=== PATIENT | male | born 1980 ===

== ENCOUNTER 2017-10-11 01:08 | Inpatient (IN) | payer MEDICAID ==
--- NOTE | 2017-10-11 01:14 | C.PDOC ---
History Of Present Illness Patient presents to the ER as a prescreen for ETOH and heroin detox, last use approximately 1 hour ago. Denies physical complaints at this time. Time Seen by Provider: 10/11/17 01:13 History Per: Patient History/Exam Limitations: no limitations Onset/Duration Of Symptoms: Days Current Symptoms Are (Timing): Still Present Suicide/Self Injury Attempted (Context): None Modifying Factor(s): Alcohol, Narcotics Severity: Mild Pain Scale Rating Of: 4 Associated Symptoms: denies: Depression, Suicidal Thoughts, Suicidal Plan Involuntary Hold By: None Recent travel outside of the [place]: No Past Medical History Reviewed: Historical Data, Nursing Documentation, Vital Signs Vital Signs: Last Vital Signs Temp 97.5 F L 10/11/17 05:55 Pulse 80 10/11/17 05:55 Resp 14 10/11/17 05:55 BP 110/70 10/11/17 05:55 Pulse Ox 98 10/11/17 05:55 - Medical History PMH: No Chronic Diseases Surgical History: No Surg Hx Family History: States: Unknown Family Hx Review Of Systems Constitutional: Negative for: Fever, Chills Gastrointestinal: Negative for: Nausea, Vomiting, Diarrhea Physical Exam - Physical Exam Appears: Non-toxic, No Acute Distress Skin: Warm, Dry Head: Normacephalic Oral Mucosa: Moist Chest: Symmetrical Cardiovascular: Rhythm Regular Respiratory: No Rales, No Rhonchi, No Wheezing Gastrointestinal/Abdominal: Soft, No Tenderness Neurological/Psych: Oriented x3 ED Course And Treatment - Laboratory Results Result Diagrams: 10/11/17 02:20 10/11/17 02:20 O2 Sat by Pulse Oximetry: 98 Pulse Ox Interpretation: Normal Disposition Discussed With : Joelle Earl Comment: accepted the pt on her service and took over the care at 6:25 AM Counseled Patient/Family Regarding: Studies Performed, Diagnosis - Disposition Disposition: HOSPITALIZED Disposition Time: 01:13 Condition: FAIR - Clinical Impression Clinical Impression: Alcohol abuse, Drug abuse, Drug dependence - Scribe Statement The provider has reviewed the documentation as recorded by the Scribe Mihai Mcdermott All medical record entries made by the Scribe were at my direction and personally dictated by me. I have reviewed the chart and agree that the record accurately reflects my personal performance of the history, physical exam, medical decision making, and the department course for this patient. I have also personally directed, reviewed, and agree with the discharge instructions and disposition. Decision To Admit - Pt Status Changed To: Hospital Disposition Of: Inpatient - Admit Certification Admit to Inpatient:: After my assessment, the patient will require hospitalization for at least two midnights. This is because of the severity of symptoms shown, intensity of services needed, and/or the medical risk in this patient being treated as an outpatient. - InPatient: Physician Admission Certification: I certify that this patient requires 2 or more midnights of care for the following reason:: After my assessment, the patient will require hospitalization for at least two midnights. This is because of the severity of symptoms shown, intensity of services needed, and/or the medical risk in this patient being treated as an outpatient. - . Bed Request Type: Detox Admitting Physician: Joelle Earl Patient Diagnosis: Drug abuse, Drug dependence, Alcohol abuse
[2017-10-11 02:23] LABS: BASO # 0.1 K/uL (0.0-0.2); BASO % 0.8 % (0.0-2.0); EOS # 0.1 K/uL (0.0-0.7); EOS % 1.2 % (0.0-4.0); HEMATOCRIT 44.5 % (35.0-51.0); LYMPH # 1.7 K/uL (1.0-4.3); LYMPH % 25.8 % (20.0-40.0); MEAN CELL VOLUME 81.5 fL (80.0-94.0); MEAN CORPUSCULAR HEMOGLOBIN 27.2 pg (27.0-31.0); MEAN CORPUSCULAR HGB CONC 33.4 g/dL (33.0-37.0); MEAN PLATELET VOLUME 10.3 fL (7.2-11.7); MONO # 0.6 K/uL (0.0-0.8); MONO % 9.1 % (0.0-10.0); RED CELL DISTRIBUTION WIDTH 14.7 % (11.5-14.5); WHITE BLOOD COUNT 6.6 K/uL (4.8-10.8)
[2017-10-11 02:50] LABS: ALCOHOL SERUM < 10 mg/dl (0-10); ALKALINE PHOSPHATASE 79 U/L (38-126); ALT/SGPT 213 U/L (21-72); AST/SGOT 95 U/L (17-59); BILIRUBIN,TOTAL 0.9 mg/dL (0.2-1.3); BLOOD UREA NITROGEN 15 mg/dL (9-20); CALCIUM 8.7 mg/dl (8.6-10.4); CARBON DIOXIDE 27 mmol/L (22-30); CHLORIDE 101 mmol/L (98-107); GFR AFRICAN-AMERICAN > 60; GLUCOSE,RANDOM 137 mg/dL (75-110); POTASSIUM 3.4 mmol/L (3.6-5.2); SODIUM 137 mmol/L (132-148); TOTAL PROTEIN 8.7 g/dL (6.3-8.3)
[2017-10-11 03:01] LABS: RBC URINE 1 /hpf (0-3); URINE BACTERIA RARE (<OCC); URINE BILIRUBIN NEGATIVE (NEGATIVE); URINE BLOOD NEGATIVE (NEGATIVE); URINE COLOR Amber (YELLOW); URINE GLUCOSE (UA) NORMAL (Normal); URINE KETONE NEGATIVE (NEGATIVE); URINE LEUKOCYTE ESTERASE NEG Leu/uL (Negative); URINE PROTEIN NEGATIVE (NEGATIVE); WBC URINE 2 /hpf (0-5)
[2017-10-11 07:32] LABS: ALB/GLOB RATIO 0.9 (1.0-2.1)
--- NOTE | 2017-10-11 08:13 | PCM.BM ---
Addendum entered and electronically signed by Ariana Fuentes 10/13/17 08:52: Family Contact Family involvement: Famliy/SO not involved Family contact: Patient declines to allow family contact at present - Goals for Treatment Patient goals for treatment: COMPLETE DETOX AND APPLY FOR [facility]. Discharge/Continuing Care - Education Needs Education Needs: Patient Medication, Patient Diagnosis/Disease Process, Patient Coping Skills, Patient Anger Management skills, Patient Placement options, Patient Community resources - Discharge Discharge Criteria: No longer exhibiting s/s of withdrawal, Reduction of target symptoms Discharge to:: Substance Abuse Rehab - Treatment Team Participation Patient/Family/SO Statement: Subutex detox Prn meds for opioid and benzo withdrawal symptoms. Will start methadone /Subutex taper once pt is withdrawing from opioid. Monitor vitals. As needed meds and vitamins Attend groups and activities [place] for abstinence and CBT for relapse prevention Support and psychoeducation Consider and encourage MAT 10/13/17 08:52 "i WANNA GO TO [facility] IF I CAN..." Discussed with Family/SO: No Was Patient/Family/SO present at Treatment Team Meeting: Yes Original Note: Treatment Plan Problems - Problems identified on initial assessmt Opiate dependence Date Initiated: 10/11/17 Time Initiated: 08:15 Assessment reference: NA Status: Active Alcohol withdrawal Date Initiated: 10/11/17 Time Initiated: 08:15 Assessment reference: NA Status: Active Treatment assets and liabiliti Patient Assests: cooperative, ADL independent, negotiates basic needs Patient Liabilities: live alone, financial problems, substance abuse - Milieu Protocol Maintain good personal hygiene: daily Encourage regular showers, daily Remind patient to perform daily oral care, daily Assist patient to perform ADL's Maintain personal safety: every shift Educate patient to report safety concerns to staff, every shift Monitor environment for contraband/sharps Medication safety: Monitor for expected outcome, potential side effects: every shift, Assess barriers to learning: every shift, Assess readiness for medication education: every shift
--- NOTE | 2017-10-11 16:42 | PCM.PSYCH ---
Initial Psychiatric Evaluation - Initial Psychiatric Evaluation Type of Admission: Voluntary Legal Status: Capacity History of Present Illness and Precipitating Events: This is a 37 y/o AA homeless male admitted for drug opioid detox. Pt. reports that he has been using Heroin, Alcohol, and Marijuana since age 13. Pt. is inconsistent in providing his history. He denied depressive symptoms and depression in the past. Pt. reports that he wants to do drug rehab upon D/C from the detox program. Pt. reports that he started to use drugs when he was 13 years old. Pt. reports that his friends introduced him to the drugs. Pt. reports that he was arrested due to drug possession. Pt reported that he drinks 1/2 pint vodka on daily basis. He reported etoh withdrawal symptoms when he is not drinking ranging from flushing, hot and cold sweat. however, he denied any sz 2/2 to etoh withdrawal, no DT, no blackout, no AVH. Currently he denied alcohol withdrawal symptoms. He denied opioid withdrawal symptoms. He reported that he is smoking PCP once a month, and last use was on Friday. He reported that he smokes 1 -2 blunts on a daily basis. He denied using cocaine. He reported that he rarely use benzo. Pt. denies any S/H ideation. Pt. also denies any A/V/t hallucinations. Pt. tested + for PCP and benzos'. Pt. failed to disclose these drugs when he was pre-screen. Social Hx; He is and has 4 children who are living with their mothers. He is unemployed. Pt. reports that he is homeless at the moment because his family stopped helping him out. Pt. reports that he wants to get his life back because the drugs is creating problems with his family. Pt. 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 Current Medications: Active Medications Generic Name Dose Route Start Last Admin Trade Name Freq PRN Reason Stop Dose Admin Benztropine Mesylate 2 mg 10/11/17 08:31 Cogentin PO Q6 PRN Extra Pyramidal Symptoms Clonidine HCl 0.1 mg 10/11/17 08:33 Catapres PO Q8H PRN autonomic instability Dicyclomine HCl 10 mg 10/11/17 08:31 Bentyl PO Q6 PRN Muscle spasm Haloperidol 5 mg 10/11/17 08:31 Haldol PO Q8 PRN Moderate Agitation Hydroxyzine HCl 25 mg 10/11/17 08:31 Atarax PO Q6 PRN Anxiety Loperamide HCl 2 mg 10/11/17 08:31 Imodium PO Q8 PRN Diarrhea Lorazepam 2 mg 10/11/17 08:31 Ativan PO Q8H PRN Severe Agitation Ondansetron HCl 4 mg 10/11/17 08:31 Zofran Tab PO Q8H PRN Nausea/Vomiting Pneumococcal Polyvalent Vaccine 0.5 ml 10/15/17 10:00 Pneumovax 23 Vaccine IM 10/15/17 10:01 .ONCE ONE Past Psychiatric History - Past Psychiatric History Prior Professional Help: had detox and rehab in past Prior Psychiatric Treatment: Rehab and detox At [facility]: [facility] History of Abuse: denied History of ETOH/Drug Use: please see HPI History of Family Illness: denied Pertinent Medical Hx (Current Medical&Sleep Prob, Allergies): Allergies Allergy/AdvReac Type Severity Reaction Status Date / Time No Known Allergies Allergy Verified 10/11/17 01:23 Naltrexone [Revia] 50 mg PO DAILY 10/11/17 denied Review of Systems - Review of Systems Systems not reviewed;Unavailable: Acuity of Condition All systems: reviewed and no additional remarkable complaints except (please see HPI) - EENT Eyes: UNREMARKABLE Ears: UNREMARKABLE Nose/Mouth/Throat: UNREMARKABLE - Cardiovascular Cardiovascular: UNREMARKABLE - Respiratory Respiratory: UNREMARKABLE - Gastrointestinal Gastrointestinal: UNREMARKABLE - Genitourinary Genitourinary: UNREMARKABLE - Reproductive: Male Reproductive:Male: UNREMARKABLE - Musculoskeletal Musculoskeletal: UNREMARKABLE - Integumentary Integumentary: UNREMARKABLE - Neurological Neurological: UNREMARKABLE - Psychiatric Additional comments: please see HPI Mental Status Examination - Personal Presentation Personal Presentation: Looks stated age, Dressed appropriate to season - Affect Affect: Broad - Motor Activity Motor Activity: Calm - Reliability in Providing Information Reliability in Providing Information: Fair - Speech Speech: Organized - Mood Mood: Neutral - Formal Thought Process Formal Thought Process: No Impairment - Hallucinations/Delusions Delusions: Other (denied) - Obsessions/Compulsions Obsessions: No Compulsions: No - Cognitive Functions Orientation: Person, Place, Situation, Time Sensorium: Drowsy Attention/Concentration: Attentive Abstract Thinking: [place] Estimate of Intelligence: Average Judgement: Intact, as evidence by: Good judgement, Intact, as evidence by: Insight regarding need for hospitalization Memory: Recent intact, as evidence by: Ability to recall events of the day - Risk Risk: Other (denied) - Strength & Assets Inventory Strength & Assets Inventory: Employment history, Cooperative - Limitations Limitations: Other (homeless, chronic illicit drug use) DSM 5 DX - DSM 5 DSM 5 Diagnosis: Alcohol denpendence Opioid abuse and intoxicated Cannabis abuse - Recommended/Plan of Treatment Treatment Recommendations and Plan of Treatment: Prn meds for opioid and alcohol withdrawal symptoms. Will start methadone /Subutex taper once pt is withdrawing from opioid. Monitor vitals. As needed meds and vitamins Attend groups and activities [place] for abstinence and CBT for relapse prevention Support and psychoeducation Consider and encourage MAT Projected ELOS: 4-5 DAYS Discharge Plan and Discharge Criteria: Refer to after care - Smoking Cessation Smoking Cessation Initiated: Yes
[2017-10-12] MEDS ORDERED: Buprenorphine Hydrochloride 2 mg SL ONE ×2 (10:54→12:10)
--- NOTE | 2017-10-12 16:16 | PCM.PYCHPN ---
Psychiatric Progress Note - Psychiatric Progress Note Patient seen today, length of contact: 18 minutes Patient Chief Complaint: I have opioid withdrawal symptoms Problems Identified/Issues Discussed: The pt is seen, chart reviewed, case discussed with staff. The pt reproted that he has had opioid withdrawal symptoms. He has hot and cold flashes, body aches, tired, yawning, nasal congestion, etc. He denied perceptual disturbances, including tactile hallucinations. He denied depressive symptoms. The pt is compliant with medications and reports no side-effects. He needs more time to stabilize. After care discussed, support and psychoeducation given. DSM 5 Symptoms Update: Opioid dependence, withdrawal, intoxication, Cannabis use d/o, Amphetamine use d /o Medication Change: Yes (Subutex taper) Medical Record Reviewed: Yes Mental Status Examination - Cognitive Function Orientation: Person, Place, Situation, Time Memory: Intact Attention: WNL Concentration: WNL Association: WNL Fund of Knowledge: [facility] Decription of patient's judgement and insights: Good/good Addtional comments: +ve yawning and goose bump - Mood Mood: Neutral - Affect Affect: Broad - Speech Speech: Appropriate - Formal Thought Process Formal Thought Process: No Impairment Psychotic Thoughts and Behaviors: denied - Suicidal Ideation Suicidal Ideation: No - Homicidal Ideation Homicidal Ideation: No Goal/Treatment Plan - Goal/Treatment Plan Need for Continued Stay: Discharge may exacerbated symptoms Progress Toward Problem(s) and Goals/Treatment Plan: Subutex detox Prn meds for opioid and benzo withdrawal symptoms. Will start methadone /Subutex taper once pt is withdrawing from opioid. Monitor vitals. As needed meds and vitamins Attend groups and activities [place] for abstinence and CBT for relapse prevention Support and psychoeducation Consider and encourage MAT Estimated Date of D/C: 10/15/17 - Smoking Cessation Smoking Cessation Initiated: No
--- NOTE | 2017-10-13 08:49 | RAD ---
Chest x-ray two views History: Rehab purposes. Comparison: None available. Findings: No focal infiltrate or effusion. Heart size within normal limits. Bibasilar breast and nipple shadows. Small nodular density at the medial right lung base likely represents prominent vessel on end. Degenerative changes in the spine. Impression: No focal infiltrate or effusion.
[2017-10-13] MEDS: Buprenorphine Hydrochloride 2 mg SL SCH (09:27)
--- NOTE | 2017-10-13 14:24 | PCM.PYCHPN ---
Psychiatric Progress Note - Psychiatric Progress Note Patient seen today, length of contact: 17 min Patient Chief Complaint: "I am feeling tired" Medical Problems: The pt is seen, chart reviewed, case discussed with staff. The pt is compliant with medications and reports no side-effects. Symptoms are improving but needs more time to stabilize. After care discussed, support and psychoeducation given. Medication Change: Yes (Subutex taper) Medical Record Reviewed: Yes Mental Status Examination - Cognitive Function Orientation: Person, Place, Situation, Time Memory: Intact Attention: WNL Concentration: WNL Association: WNL Fund of Knowledge: WNL - Mood Mood: Neutral - Affect Affect: Broad - Speech Speech: Appropriate - Formal Thought Process Formal Thought Process: No Impairment - Suicidal Ideation Suicidal Ideation: No - Homicidal Ideation Homicidal Ideation: No Goal/Treatment Plan - Goal/Treatment Plan Need for Continued Stay: Discharge may exacerbated symptoms, Severe functional impairment Progress Toward Problem(s) and Goals/Treatment Plan: Subutex detox As needed medications Gabapentin for augmentation Attend groups and activities Supportive therapy and psychoeducation [place] for abstinence CBT for relapse prevention Encourage MAT Refer to rehab or IOP Attend self-help groups as well Estimated Date of D/C: 10/15/17 - Smoking Cessation Smoking Cessation Initiated: No
[2017-10-14] MEDS: Buprenorphine Hydrochloride 2 mg SL SCH (10:03)
--- NOTE | 2017-10-14 14:16 | PCM.PYCHPN ---
Psychiatric Progress Note - Psychiatric Progress Note Patient seen today, length of contact: 18 min Patient Chief Complaint: "I am feeling alright" Problems Identified/Issues Discussed: The pt is seen, chart reviewed, case discussed with staff. He refused his subutex today saying he is feeling Ok. Risks discussed. Pt is in good spirits and stated he plans to go to [facility] after discharge. The pt is compliant with medications and reports no side-effects. Symptoms are improving but needs more time to stabilize. After care discussed, support and psychoeducation given. Medication Change: Yes (Subutex taper) Medical Record Reviewed: Yes Mental Status Examination - Cognitive Function Orientation: Person, Place, Situation, Time Memory: Intact Attention: WNL Concentration: WNL Association: WNL Fund of Knowledge: WNL - Mood Mood: Neutral - Affect Affect: Broad - Speech Speech: Appropriate - Formal Thought Process Formal Thought Process: No Impairment - Suicidal Ideation Suicidal Ideation: No - Homicidal Ideation Homicidal Ideation: No Goal/Treatment Plan - Goal/Treatment Plan Need for Continued Stay: Discharge may exacerbated symptoms Progress Toward Problem(s) and Goals/Treatment Plan: Subutex detox As needed medications Gabapentin for augmentation Attend groups and activities Supportive therapy and psychoeducation [place] for abstinence CBT for relapse prevention Encourage MAT Refer to rehab or IOP Attend self-help groups as well Estimated Date of D/C: 10/15/17
[2017-10-15] MEDS ORDERED: Pneumococcal 23-Valent Vaccine IM ONE (10:00)
[2017-10-15] MEDS ORDERED: Influenza Vaccine 60 mcg/0.5 mL SYR (4YR UP) IM ONE (10:00)
[2017-10-15] MEDS: Buprenorphine Hydrochloride 2 mg SL SCH (10:26)
--- NOTE | 2017-10-15 14:12 | PCM.PYCHPN ---
Psychiatric Progress Note - Psychiatric Progress Note Patient seen today, length of contact: 18 min Patient Chief Complaint: "I am feeling better today Problems Identified/Issues Discussed: The pt is seen, chart reviewed, case discussed with staff. Pt is in feeling a lot better and is still planning to go to [facility] after his discharge. Pt stated that he is interested in Seroquel. The pt is compliant with medications and reports no side-effects. Symptoms are improving but needs more time to stabilize. After care discussed, support and psychoeducation given. Medication Change: Yes (Subutex taper) Medical Record Reviewed: Yes Mental Status Examination - Cognitive Function Orientation: Person, Place, Situation, Time Memory: Intact Attention: WNL Concentration: WNL Association: WNL Fund of Knowledge: WNL - Mood Mood: Neutral - Affect Affect: Broad - Speech Speech: Appropriate - Formal Thought Process Formal Thought Process: No Impairment - Suicidal Ideation Suicidal Ideation: No - Homicidal Ideation Homicidal Ideation: No Goal/Treatment Plan - Goal/Treatment Plan Need for Continued Stay: Remain at risks for inpatient hospitalization, Discharge may exacerbated symptoms Progress Toward Problem(s) and Goals/Treatment Plan: Subutex detox As needed medications Gabapentin for augmentation Attend groups and activities Supportive therapy and psychoeducation [place] for abstinence CBT for relapse prevention Encourage MAT Refer to rehab or IOP Refer to [facility] after Discharge Attend self-help groups as well Estimated Date of D/C: 10/15/17
[2017-10-16 06:49] VITALS: BP 98/68; RESP 20
--- NOTE | 2017-10-16 08:57 | PCM.PYCHDC ---
Mental Status Examination - Mental Status Examination Orientation: Person, Place, Situation, Time Memory: Intact Mood: Anxious Affect: Constricted Speech: Appropriate Attention: WNL Concentration: WNL Association: WNL Fund of Knowledge: WNL Formal Thought Process: No Impairment Suicidal Ideation: No Current Homicidal Ideation?: No Discharge Summary - Discharge Note Consultations:: List each consultation separately and include: 1. Reason for request. 2. Findings. 3. Follow-up Summary of Hospital Course include:: 1. Description of specific treatment plan utilized for patients during their course of treatmen. 2. Summarize the time- course for resolution of acute symptoms and/or regressed behaviors. 3. Describe issues identified and worked on during hospitalization. 4. Describe medication utilized. 5. Describe medical problems identified and treated. 6. Reassessment of suicide risk Summary of Hospital Course: Will start [facility] tomorrow. He says his is a counselor at [facility] and will keep an eye on him until he starts rehab. - Final Diagnosis (DSM 5) Condition upon Discharge: IMPROVED Disposition: HOME/ ROUTINE Prescriptions/Medication Reconciliation: hydrOXYzine HCl [Atarax] 25 mg PO BID PRN #60 tab PRN Reason: Anxiety QUEtiapine [SEROquel] 50 mg PO HS #30 tab
[2017-10-16 09:46] VITALS: PULSE 100; TEMP 98; O2SAT 100
== END 2017-10-16 09:35 | disposition home or self-care (01) | DRG 745 ==
LOC: C.ER 01:08 → C.7D 06:24
PROVIDERS: ADMIT Psychiatry & Neurology Psychiatry; ATTEND Psychiatry & Neurology Psychiatry
DX: F11.229 Opioid dependence with intoxication, unspecified (principal); F10.239 Alcohol dependence with withdrawal, unspecified; F12.10 Cannabis abuse, uncomplicated; F19.90 Other psychoactive substance use, unspecified, uncomplicated; F15.90 Other stimulant use, unspecified, uncomplicated; Y90.0 Blood alcohol level of less than 20 mg/100 ml; Z59.0 Homelessness